=== PATIENT | female | born 1995 | race Caucasian/White ===

== ENCOUNTER 2021-02-07 09:17 | Emergency (ER) | payer OTHER, MEDICAID, SELFPAY ==
[2021-02-07] VITALS (7 sets, daily range): BP systolic 105–139; BP diastolic 59–74; PULSE 57–80; RESP 11–21; TEMP 36.6; O2SAT 97–100; BMI 43.7
--- NOTE | 2021-02-07 09:48 | ED.SYNCOPE ---
HPI - Syncope General Chief Complaint: Syncope Stated Complaint: Passed out and hit head. low abd cramping Time Seen by Provider: 02/07/21 09:39 Source: patient Mode of arrival: Ambulatory Limitations: no limitations History of Present Illness HPI narrative: 25-year-old female nonsmoker without significant medical history presents with a chief complaint of a syncopal episode this morning and right lower quadrant pain and cramping. She states that she went to bed in her normal state of health. She had no dizziness or lightheadedness. She has had no recent nausea, vomiting or diarrhea. She denies any new medications or dietary change. Her last menstrual cycle was the 1st week of this month and was normal for her, she does state that that is usually irregular due to her IUD. She denies any current vaginal bleeding or discharge. She woke up this morning and was having this lower abdominal discomfort and went to the bathroom and began to feel dizzy, lightheaded and suffered a syncopal episode. When she fell she struck her head and came back to her normal level of consciousness and baseline neurologic status prior to her arrival. Denies any blurred vision or trouble with speech. Related Data Previous Rx's Medication Instructions Recorded azithromycin 250 mg tablet 250 mg PO QDAY #6 tab 08/10/16 (Zithromax) benzonatate 100 mg capsule 100 mg PO TIDP PRN #20 cap 08/10/16 (Tessalon Perles) ketorolac 10 mg tablet 10 mg PO Q6H PRN #14 tab 02/07/21 Allergies Allergy/AdvReac Type Severity Reaction Status Date / Time Penicillins [PENICILLINS] Allergy Unknown Verified 02/07/21 09:41 Review of Systems Review of Systems Narrative: GENERAL: Denies chills, fatigue, malaise, fever, sweats. HEENT: Denies sinus pain, ear pain, sore throat, difficulty swallowing, dizziness. RESPIRATORY: Denies dyspnea, cough, wheezing, hemoptysis, sputum. CARDIOVASCULAR: See HPI GASTROINTESTINAL: See HPI : Denies dysuria, frequency, incontinence, hematuria, urinary retention. MUSCULOSKELETAL: denies weakness, joint pain, or bony pain SKIN: Denies rash, skin lesions, or other NEUROLOGIC: Denies weakness, headache, numbness, change in speech, confusion, seizures, incoordination. PSYCHIATRIC: No concerning psychosocial issues. 12 point review of systems is negative except for those stated above Patient History Social History Smoking Status: Never smoker Smoking Status: Never smoker alcohol intake frequency: holidays/special occasions only Substance Use Type: marijuana Exam Narrative Exam Narrative: GENERAL: 25 year old patient appears stated age. Well-developed patient, in mild distress. Anxious, alert and oriented x3 HEAD: Atraumatic. Normocephalic. EYES: Pupils equal round and reactive. Extraocular motions intact. No scleral icterus. No injection or drainage. ENT: Nose without bleeding, purulent drainage. Throat without erythema, tonsillar hypertrophy or exudate. Airway patent. NECK: Trachea midline. Non tender CARDIOVASCULAR: Regular rate and rhythm without murmurs, gallops, or rubs. RESPIRATORY: Clear to auscultation. Breath sounds equal bilaterally. No wheezes, rales, or rhonchi. GASTROINTESTINAL: Abdomen soft, non-tender, nondistended. EXTREMITIES: No edema or joint tenderness. BACK: Nontender without deformity or crepitance. No flank tenderness. NEURO: Cranial nerves 2-12 grossly intact, no evidence of focal neurologic abnormality SKIN: No rash or erythema of visible areas Initial Vital Signs Initial Vital Signs: Vital Signs Pulse Rate 80 02/07/21 09:37 Blood Pressure 118/61 02/07/21 09:37 Pulse Oximetry 99 02/07/21 09:37 Course Orders Ordered: Discontinued Medications Sodium Chloride (Normal Saline 0.9%) 1,000 mls @ 1,000 mls/hr IV BOLUS ONE Stop: 02/07/21 10:47 Last Infusion: 02/07/21 11:28 Dose: 0 mls/hr Documented by: Admin: 02/07/21 10:10 Dose: 1,000 mls/hr Documented by: AILEEN Ketorolac Tromethamine (Ketorolac 30 Mg/Ml Vial) 15 mg IV NOW ONE Stop: 02/07/21 11:27 Last Admin: 02/07/21 11:33 Dose: 15 mg Documented by: TIMOTHY Vital Signs Vital signs: Vital Signs - 8 hr 02/07/21 09:41 Temperature 97.9 F Pulse Rate 71 Respiratory Rate 18 Blood Pressure 118/61 Pulse Oximetry 98 MDM - Syncope Lab Data Result diagrams: 02/07/21 10:00 10/23/21 10:00 Labs: Lab Results 02/07/21 02/07/21 Range/Units 10:00 10:00 WBC 8.7 (4.5-11.0) X10^3/uL RBC 4.87 (4.0-5.2) X10^6/uL Hgb 14.6 (12.0-16.0) g/dL Hct 42.6 (36-46) % MCV 87.5 (80-100) fL MCH 29.9 (26-34) PG MCHC 34.2 (30-36) % RDW 12.8 (11.6-14.8) % Plt Count 285 (150-400) X10^3/uL Neut % (Auto) 68.4 (50-75) % Lymph % (Auto) 23.1 L (25-40) % Hunt % (Auto) 7.4 (3-14) % Eos % (Auto) 0.7 L (2-4) % Baso % (Auto) 0.4 (0-2) % Neut # (Auto) 5900 (3770-5899) /uL Lymph # (Auto) 2000 (9344-2524) /uL Hunt # (Auto) 600 (0-900) /uL Eos # (Auto) 100 (0-450) /uL Baso # (Auto) 0 (0-100) /uL Sodium 139 (137-145) mmol/L Potassium 4.0 (3.4-5.1) mmol/L Chloride 105 (98-107) mmol/L Carbon Dioxide 24 (22-32) mmol/L BUN 15 (7-17) mg/dL Creatinine 0.63 (0.52-1.04) mg/dL Estimated GFR > 60.0 (>60) mL/min BUN/Creatinine Ratio 23.8 H (6-22) Glucose 100 (70-100) mg/dL Calcium 9.5 (8.4-10.2) mg/dL Magnesium 2.0 (1.6-2.3) mg/dL Total Bilirubin 0.8 (0.2-1.3) mg/dL AST 25 (14-36) IU/L ALT 20 (<35) IU/L Alkaline Phosphatase 77 (38-126) U/L Total Creatine Kinase 115 (30-135) U/L CK-MB (CK-2) 0.25 (<2.37) ng/mL CK-MB (CK-2) Rel Index 0.2 L (1.5-5.0) % Troponin I < 0.012 (0.01-0.034) ng/mL Total Protein 8.3 H (6.3-8.2) g/dL Albumin 4.8 (3.5-5.0) g/dL Globulin 3.5 (1.7-4.1) g/dL Albumin/Globulin Ratio 1.4 (1.0-2.8) Urine Dip Bedside Urine Glucose Negative Bedside Urine Bilirubin - Negative Bedside Urine Ketone - Negative Urine Specific [place] 1.015 Bedside Urine Occult Blood - Negative Bedside Urine pH 6.0 Bedside Urine Protein - Negative Bedside Urine Urobilinogen - Negative Bedside Urine Nitrite - Negative Bedside Urine Leukocytes - Negative Esterase Imaging Data US - abdomen: Radiologist's Impression: [address] [address] Ultrasound Report Signed Patient: Susan Winkler MR#: [id number] : 1995 Acct:[id number] Age/Sex: 25 / F Date of Service: 02/07/21 Loc: ED Accession Number: [id number] ?? Procedure: US pelvic complete Ordering Provider: Ray Walker D.O. PROCEDURE:? US PELVIC COMPLETE ? INDICATIONS:? RIGHT PELVIC PAIN ? TECHNIQUE:? Real-time scanning was performed of the pelvic organs, with image documentation.? Additional endovaginal scanning was necessary due to incomplete visualization of the adnexal and endometrial structures by transabdominal scanning.? ? COMPARISON:? None. ? FINDINGS:? ?? Uterus:? Uterus is normal in size at 7.1 x 3.6 x 4 cm.? The endometrium measures 5 mm in combined thickness.? The IUD is seen at its expected location.? ? Ovaries:? The right ovary measures 5.1 x 3.6 x 4.5 and demonstrates a 3.9 x 3 x 4 cm complex cyst without abnormal vascularity.? This cyst demonstrates a fishnet type echotexture. ? The left ovary measures 2.8 x 1.4 x 1.2 cm and demonstrates an unremarkable appearance. ? Normal appearing arterial waveforms are confirmed to each ovary.? No adnexal masses are seen on either side.? ? Other: ? There is moderate right adnexal fluid seen. ? No appendix (either normal or abnormal) is identified on this study. ? ? IMPRESSION:? 4 cm hemorrhagic right ovarian cyst seen, with right adnexal free fluid. If it would be clinically appropriate, a followup pelvic ultrasound could be considered in 6 weeks to assure resolution/ improvement.? ? No appendix (either normal or abnormal) is identified on this study.? ? ? Dictated by: Jared Murray M.D. on 02/07/2021 at 10:02 ? ? Approved by: Jared Murray M.D. on 02/07/2021 at 10:04 ? ECG Data Interpretation: EKG is normal sinus rhythm rate [70 ] and free of any signs of ischemia or ectopy. No ST segmental elevation or depression. No T wave inversions MDM Narrative Medical decision making narrative: Patient with a very reassuring history and exam. Labs are unremarkable. Imaging to suggest hemorrhagic ovarian syst. Vitals are stable. H/H stable. Syncopal episode likely a combination of postural and vagal from the pain. She is feeling much better after above therapies. Return precautions given Discharge Plan Departure Patient Disposition: Home Clinical Impression: Ovarian cyst Qualifiers: Laterality: right Qualified Code(s): N83.201 - Unspecified ovarian cyst, right side Instructions: DI for Syncope in Adults (Fainting), DI for Ovarian Cyst Activity Restrictions/Additional Instructions: *You have been diagnosed with [right ovarian cyst with vasovagal syncope *What to do: *Please continue to take your regular medications as directed. [x ] New medication prescriptions sent to your pharmacy: [ ] [ ] New medication written as a paper prescription [ ] No new medications given *Please follow up with your primary care provider in 2-3 days, call for an appointment. Let them know you were seen in the Emergency Department and that we ask that you be seen in follow up. We will electronically transmit a record of today's note if your PCP is in our system *If you do not have a primary care provider please contact the [facility] Resource line at [phone]. They will ask some questions about your medical history and help get you set up with a doctor in the community. *Return to Emergency Department if you should have any new, worsening or concerning symptoms, such as [fever greater than 101 F, shaking chills, worsening pain, persistent vomiting or other bothersome symptoms] Prescriptions: New ketorolac 10 mg tablet 10 mg PO Q6H PRN (Reason: pain) Qty: 14 RF: 0 No Action azithromycin [Zithromax] 250 MG tablet 250 mg PO QDAY Qty: 6 RF: 0 benzonatate [Tessalon Perles] 100 MG capsule 100 mg PO TIDP PRNQty: 20 RF: 0 Referrals: [facility] [Outside] Stand Alone Forms: Work Release Note
--- NOTE | 2021-02-07 09:56 | DI.US.S_ITS ---
PROCEDURE: US PELVIC COMPLETE INDICATIONS: RIGHT PELVIC PAIN TECHNIQUE: Real-time scanning was performed of the pelvic organs, with image documentation. Additional endovaginal scanning was necessary due to incomplete visualization of the adnexal and endometrial structures by transabdominal scanning. COMPARISON: None. FINDINGS: Uterus: Uterus is normal in size at 7.1 x 3.6 x 4 cm. The endometrium measures 5 mm in combined thickness. The IUD is seen at its expected location. Ovaries: The right ovary measures 5.1 x 3.6 x 4.5 and demonstrates a 3.9 x 3 x 4 cm complex cyst without abnormal vascularity. This cyst demonstrates a fishnet type echotexture. The left ovary measures 2.8 x 1.4 x 1.2 cm and demonstrates an unremarkable appearance. Normal appearing arterial waveforms are confirmed to each ovary. No adnexal masses are seen on either side. Other: There is moderate right adnexal fluid seen. No appendix (either normal or abnormal) is identified on this study. IMPRESSION: 4 cm hemorrhagic right ovarian cyst seen, with right adnexal free fluid. If it would be clinically appropriate, a followup pelvic ultrasound could be considered in 6 weeks to assure resolution/ improvement. No appendix (either normal or abnormal) is identified on this study. Dictated by: Jared Murray M.D. on 02/07/2021 at 10:02 Approved by: Jared Murray M.D. on 02/07/2021 at 10:04
[2021-02-07] MEDS: SODIUM CHLORIDE 0.9% 1,000 ML 1000 ML IV (10:10)
[2021-02-07 10:15] LABS: Add Manual Diff / Slide Review NO; Basophils Absolute Auto 0 /uL (0-100); Basophils Percent Auto 0.4 % (0-2); Eosinophils Absolute Auto 100 /uL (0-450); Eosinophils Percent Auto 0.7 % (2-4); Hematocrit 42.6 % (36-46); Hemoglobin 14.6 g/dL (12.0-16.0); Lymphocytes Absolute Auto 2000 /uL (1100-4500); Lymphocytes Percent Auto 23.1 % (25-40); Mean Corpuscular HGB Conc 34.2 % (30-36); Mean Corpuscular Hemoglobin 29.9 PG (26-34); Mean Corpuscular Volume 87.5 fL (80-100); Monocytes Absolute Auto 600 /uL (0-900); Monocytes Percent Auto 7.4 % (3-14); Neutrophils Absolute Auto 5900 /uL (1500-7000); Neutrophils Percent Auto 68.4 % (50-75); Platelet Count 285 X10^3/uL (150-400); Red Blood Cell Count 4.87 X10^6/uL (4.0-5.2); Red Cell Distribution Width 12.8 % (11.6-14.8); White Blood Cell Count 8.7 X10^3/uL (4.5-11.0)
[2021-02-07 10:30] LABS: Alanine Aminotransferase 20 IU/L (<35); Albumin 4.8 g/dL (3.5-5.0); Albumin Globulin Ratio 1.4 (1.0-2.8); Alkaline Phosphatase 77 U/L (38-126); Aspartate Aminotransferase 25 IU/L (14-36); BUN Creatinine Ratio 23.8 (6-22); Bilirubin Total 0.8 mg/dL (0.2-1.3); Blood Urea Nitrogen 15 mg/dL (7-17); Calcium 9.5 mg/dL (8.4-10.2); Carbon Dioxide 24 mmol/L (22-32); Chloride 105 mmol/L (98-107); Creatine Kinase 115 U/L (30-135); Estimated Glomerular Filt Rate > 60.0 mL/min (>60); Globulin 3.5 g/dL (1.7-4.1); Glucose 100 mg/dL (70-100); HEMOLYSIS 29 (0-50); Sodium 139 mmol/L (137-145); Total Protein 8.3 g/dL (6.3-8.2)
[2021-02-07 10:41] LABS: Troponin I < 0.012 ng/mL (0.01-0.034)
[2021-02-07 10:45] LABS: CKMB % Relative Index 0.2 % (1.5-5.0); Creatine Kinase MB 0.25 ng/mL (<2.37)
[2021-02-07] MEDS: KETOROLAC 30 MG/ML VIAL 15 MG IV (11:33)
== END 2021-02-07 11:55 | disposition home or self-care (01) ==
PROVIDERS: Emergency Provider Emergency Medicine
DX: N83.201 Unspecified ovarian cyst, right side (principal); R10.31 Right lower quadrant pain; R55 Syncope and collapse
CPT/HCPCS: 36415; 76830; 76856; 80053; 81003; 82550; 82553; 83735; 84484; 85025; 93005; 93010; 96361; 96374; 99284; J1885

== ENCOUNTER 2021-03-09 14:22 | Emergency (ER) | payer OTHER, MEDICAID, SELFPAY ==
[2021-03-09 14:45] VITALS: BP 128/61; PULSE 70; RESP 16; TEMP 36.4; O2SAT 100; BMI 44.8
--- NOTE | 2021-03-09 16:34 | DI.US.S_ITS ---
PROCEDURE: US PELVIC COMPLETE INDICATIONS: ?IUD PLACEMENT,?OVARIAN CYST RUPTURE,?TORSION. NEG HCG. LMP 02/23/2021? TECHNIQUE: Real-time scanning was performed of the pelvic organs, with image documentation. Additional endovaginal scanning was necessary due to incomplete visualization of the adnexal and endometrial structures by transabdominal scanning. COMPARISON: [facility], US, US PELVIC COMPLETE, 02/07/2021, 10:35. FINDINGS: Uterus: Uterus is anteverted and normal in size at 7.1 x 3.8 x 3 cm. The myometrium is homogeneous. The endometrium measures 6 mm combined thickness. IUD is centered in the uterus. Ovaries: The right ovary measures 4.2 x 3.7 x 3.2 cm. The left ovary measures 2.4 x 2 x 1.6 cm. Complex right ovarian cyst measuring 2.9 x 2.7 x 1.6 cm (previously 4 x 3.9 x 3 cm). No internal vascularity. The cyst is hypoechoic with an internal lace-like appearance. A few small ovarian follicles. Blood flow seen in both ovaries. Other: Small volume of free fluid. IMPRESSION: 1. Right ovarian hemorrhagic cyst measuring 2.9 cm is decreased in size. Small volume of free fluid in the pelvis. 2. No ovarian torsion is demonstrated. 3. IUD is centered in the uterus. We strive to produce accurate, complete, and clear reports of imaging services. To assist us in improving patient care, this report was composed using standard report templates and voice recognition software. Therefore, it may contain abnormal punctuation, insertions and/or omissions. Occasional wrong-word or sound-alike substitutions may occur. Though we review the report and make efforts to correct it, we do recommend that the report be read carefully in proper context to recognize any text inaccuracies. Dictated by: Margarito Frost M.D. on 03/09/2021 at 17:49 Approved by: Margarito Frost M.D. on 03/09/2021 at 17:55
[2021-03-09] MEDS: KETOROLAC 30 MG/ML VIAL 15 MG IV (17:00)
[2021-03-09 17:03] VITALS: BP 109/56; PULSE 60; RESP 20; O2SAT 100
[2021-03-09 17:12] LABS: Add Manual Diff / Slide Review NO; Basophils Absolute Auto 0 /uL (0-100); Basophils Percent Auto 0.4 % (0-2); Eosinophils Absolute Auto 100 /uL (0-450); Eosinophils Percent Auto 0.6 % (2-4); Hematocrit 41.7 % (36-46); Hemoglobin 14.2 g/dL (12.0-16.0); Lymphocytes Absolute Auto 3200 /uL (1100-4500); Lymphocytes Percent Auto 28.9 % (25-40); Mean Corpuscular Hemoglobin 29.7 PG (26-34); Mean Corpuscular Volume 87.3 fL (80-100); Monocytes Absolute Auto 700 /uL (0-900); Monocytes Percent Auto 6.3 % (3-14); Neutrophils Absolute Auto 7000 /uL (1500-7000); Neutrophils Percent Auto 63.8 % (50-75); Platelet Count 287 X10^3/uL (150-400); Red Blood Cell Count 4.77 X10^6/uL (4.0-5.2); Red Cell Distribution Width 12.5 % (11.6-14.8); White Blood Cell Count 10.9 X10^3/uL (4.5-11.0)
[2021-03-09 17:46] LABS: BUN Creatinine Ratio 22.2 (6-22); Blood Urea Nitrogen 14 mg/dL (7-17); Calcium 9.5 mg/dL (8.4-10.2); Carbon Dioxide 26 mmol/L (22-32); Chloride 106 mmol/L (98-107); Estimated Glomerular Filt Rate > 60.0 mL/min (>60); Glucose 93 mg/dL (70-100); HEMOLYSIS < 15 (0-50); Lactate (Lactic Acid) 0.8 mmol/L (0.7-2.1); Potassium 4.1 mmol/L (3.4-5.1); Sodium 140 mmol/L (137-145)
--- NOTE | 2021-03-09 17:54 | ED_ITS ---
HPI - Abdominal Pain <Frank Aguilar PA-C - Last Filed: 03/09/21 18:30> General Chief Complaint: Abdominal Pain Stated Complaint: ovarian cyst rupture Time Seen by Provider: 03/09/21 15:55 Source: patient Mode of arrival: Ambulatory History of Present Illness HPI narrative: 25-year-old female with no reported past medical history presents to the ED with 2 days of lower abdominal pain. Patient states that her pain started as a dull cramping yesterday, intensified today about noon to 10/10 pain. Patient denies fever, chills, chest pain, shortness of breath, cough, nausea, vomiting, flank pain, dysuria, constipation, diarrhea, lightheadedness, dizziness, syncope. LMP was 02/24/2021. Patient has a IUD in. Patient states that she was seen in the ED with similar symptoms a month ago, when she was diagnosed with a hemorrhagic cyst. Related Data Previous Rx's Medication Instructions Recorded azithromycin 250 mg tablet 250 mg PO QDAY #6 tab 08/10/16 (Zithromax) benzonatate 100 mg capsule 100 mg PO TIDP PRN #20 cap 08/10/16 (Tessalon Perles) ketorolac 10 mg tablet 10 mg PO Q6H PRN #14 tab 02/07/21 Allergies Allergy/AdvReac Type Severity Reaction Status Date / Time Penicillins [PENICILLINS] Allergy Unknown Verified 03/09/21 14:50 Review of Systems <Frank Aguilar PA-C - Last Filed: 03/09/21 18:30> Review of Systems ROS Unobtainable: All systems reviewed & are unremarkable except as noted in HPI and below Constitutional Constitutional: Denies chills, Denies fatigue, Denies fever(s), Denies frequent falls, Denies lethargy and Denies weakness Eyes Eyes: Denies change in vision, Denies eye discharge, Denies irritation and Denies loss of vision ENT Ears, Nose, Mouth, and Throat: Denies change in voice, Denies dizziness, Denies neck pain, Denies sore throat and Denies throat swelling Cardiovascular Cardiovascular: Denies chest pain, Denies irregular heart rhythm, Denies lightheadedness, Denies palpitations, Denies dyspnea, Denies dyspnea on exertion and Denies orthopnea Respiratory Respiratory: Denies cough, Denies dyspnea, Denies dyspnea on exertion and Denies wheezing Gastrointestinal Gastrointestinal: Reports abdominal pain, Denies change in bowel habits, Denies diarrhea, Denies nausea and Denies vomiting Genitourinary Genitourinary: Denies hematuria, Denies flank pain, Denies urinary incontinence and Denies urinary urgency Musculoskeletal Musculoskeletal: Denies back pain, Denies muscle weakness, Denies neck pain, Denies numbness and Denies tingling Integumentary/Breasts Skin/Breast: Denies pruritus, Denies erythema, Denies rash and Denies wounds Neurologic Neurologic: Denies behavioral changes, Denies confusion, Denies dizziness, Denies frequent falls, Denies loss of vision, Denies numbness, Denies tingling and Denies weakness Psychiatric Psychiatric: Denies anxiety, Denies behavioral changes, Denies confusion, Denies depression, Denies homicidal ideation and Denies suicidal ideation Endocrine Endocrine: Denies fatigue, Denies flushing and Denies palpitations Hematologic/Lymphatic Hematologic/Lymphatic: Denies easy bruising Allergic/Immunologic Allergic/Immunologic: Denies urticaria, Denies throat swelling and Denies wheezing Patient History <Frank Aguilar PA-C - Last Filed: 03/09/21 18:30> Social History Smoking Status: Never smoker Smoking Status: Never smoker alcohol intake frequency: holidays/special occasions only Substance Use Type: marijuana Exam <Frank Aguilar PA-C - Last Filed: 03/09/21 18:30> Initial Vital Signs Initial Vital Signs: Vital Signs Temperature 97.6 F 03/09/21 14:45 Pulse Rate 70 03/09/21 14:45 Respiratory Rate 16 03/09/21 14:45 Blood Pressure 128/61 03/09/21 14:45 Pulse Oximetry 100 03/09/21 14:45 Const General: cooperative and healthy appearing [facility] Head: normal to inspection Eyes General: appearance normal, both eyes and all related structures Neck Neck: normal visual inspection Chest Chest: normal inspection of the chest Resp Effort & Inspection: normal respiratory effort Auscultation: clear to auscultation bilaterally Cardio Rate: regular rate Rhythm: regular rhythm GI Inspection: normal to inspection Other: Abdomen is soft, nondistended, tender to palpation in the lower quadrants. No CVA tenderness. General: No CVA tenderness Skin General: no rashes or lesions noted Neuro General: patient alert, patient awake and patient oriented x3 Extrem General: normal to inspection <Shantanu Almazan DO - Last Filed: 03/09/21 18:36> Initial Vital Signs Initial Vital Signs: Vital Signs Temperature 97.6 F 03/09/21 14:45 Pulse Rate 70 03/09/21 14:45 Respiratory Rate 16 03/09/21 14:45 Blood Pressure 128/61 03/09/21 14:45 Pulse Oximetry 100 03/09/21 14:45 Course <Frank Aguilar PA-C - Last Filed: 03/09/21 18:30> Course Course Narrative: Labs within normal limits. UA negative. HCG negative. Ultrasound negative for acute findings. Patient's symptoms improved with Toradol. Will discharge home with ED return precautions, of apple picking supervisor follow-up. Patient verbalized understand ing. Orders Ordered: ED Orders 03/09/21 16:34 US pelvic complete Stat 03/09/21 17:06 BMP [Basic Metabolic Panel] Stat CBC Auto Diff [Complete Blood Count AUTO DIFF] Stat Lactate (Lactic Acid) Stat Discontinued Medications Ketorolac Tromethamine (Ketorolac 30 Mg/Ml Vial) 15 mg IV NOW ONE Stop: 03/09/21 16:35 Last Admin: 03/09/21 17:00 Dose: 15 mg Documented by: HENRY Vital Signs Vital signs: Vital Signs - 8 hr 03/09/21 14:45 03/09/21 17:03 Temperature 97.6 F Pulse Rate 70 60 Respiratory Rate 16 20 Blood Pressure 128/61 109/56 L Pulse Oximetry 100 100 <Shantanu Almazan DO - Last Filed: 03/09/21 18:36> Orders Ordered: ED Orders 03/09/21 16:34 US pelvic complete Stat 03/09/21 17:06 BMP [Basic Metabolic Panel] Stat CBC Auto Diff [Complete Blood Count AUTO DIFF] Stat Lactate (Lactic Acid) Stat Discontinued Medications Ketorolac Tromethamine (Ketorolac 30 Mg/Ml Vial) 15 mg IV NOW ONE Stop: 03/09/21 16:35 Last Admin: 03/09/21 17:00 Dose: 15 mg Documented by: HENRY Vital Signs Vital signs: Vital Signs - 8 hr 03/09/21 14:45 03/09/21 17:03 Temperature 97.6 F Pulse Rate 70 60 Respiratory Rate 16 20 Blood Pressure 128/61 109/56 L Pulse Oximetry 100 100 MDM - Abdominal Pain <Hyma NICHOLAS Aguilar - Last Filed: 03/09/21 18:30> Lab Data Lab results narrative: Labs within normal limits, UA negative, hCG negative Result diagrams: 03/09/21 17:06 03/09/21 17:06 Labs: Lab Results 03/09/21 03/09/21 03/09/21 Range/Units 17:06 17:06 17:06 WBC 10.9 (4.5-11.0) X10^3/uL RBC 4.77 (4.0-5.2) X10^6/uL Hgb 14.2 (12.0-16.0) g/dL Hct 41.7 (36-46) % MCV 87.3 (80-100) fL MCH 29.7 (26-34) PG MCHC 34.0 (30-36) % RDW 12.5 (11.6-14.8) % Plt Count 287 (150-400) X10^3/uL Neut % (Auto) 63.8 (50-75) % Lymph % (Auto) 28.9 (25-40) % [place] % (Auto) 6.3 (3-14) % Eos % (Auto) 0.6 L (2-4) % Baso % (Auto) 0.4 (0-2) % Neut # (Auto) 7000 (9663-5646) /uL Lymph # (Auto) 3200 (2969-9919) /uL [place] # (Auto) 700 (0-900) /uL Eos # (Auto) 100 (0-450) /uL Baso # (Auto) 0 (0-100) /uL Sodium 140 (137-145) mmol/L Potassium 4.1 (3.4-5.1) mmol/L Chloride 106 (98-107) mmol/L Carbon Dioxide 26 (22-32) mmol/L BUN 14 (7-17) mg/dL Creatinine 0.63 (0.52-1.04) mg/dL Estimated GFR > 60.0 (>60) mL/min BUN/Creatinine Ratio 22.2 H (6-22) Glucose 93 (70-100) mg/dL Lactate 0.8 (0.7-2.1) mmol/L Calcium 9.5 (8.4-10.2) mg/dL Point of care testing: Point of Care Testing Test Results Negative Urine Dip Bedside Urine Glucose Negative Bedside Urine Bilirubin - Negative Bedside Urine Ketone - Negative Urine Specific [place] 1.025 Bedside Urine Occult Blood - Negative Bedside Urine pH 6.0 Bedside Urine Protein - Negative Bedside Urine Urobilinogen - Negative Bedside Urine Nitrite - Negative Bedside Urine Leukocytes - Negative Esterase Imaging Data US - [employer] REPRESENTATIVE: Radiologist's Impression: PROCEDURE:? US PELVIC COMPLETE ? INDICATIONS:? ?IUD PLACEMENT,?OVARIAN CYST RUPTURE,?TORSION. NEG HCG. LMP 02/23/2021? ? TECHNIQUE:? Real-time scanning was performed of the pelvic organs, with image documentation.? Additional endovaginal scanning was necessary due to incomplete visualization of the adnexal and endometrial structures by transabdominal scanning.? ? COMPARISON:? [facility], , US PELVIC COMPLETE, 02/07/2021, 10:35. ? FINDINGS:? ?? Uterus:? Uterus is anteverted and normal in size at 7.1 x 3.8 x 3 cm. The myometrium is homogeneous. ? The endometrium measures 6 mm combined thickness.? IUD is centered in the uterus. ? Ovaries:? The right ovary measures 4.2 x 3.7 x 3.2 cm. The left ovary measures 2.4 x 2 x 1.6 cm.? Complex right ovarian cyst measuring 2.9 x 2.7 x 1.6 cm (previously 4 x 3.9 x 3 cm).? No internal vascularity.? The cyst is hypoechoic with an internal lace- like appearance.? A few small ovarian follicles.? Blood flow seen in both ovaries. ? Other:? Small volume of free fluid. ? ? IMPRESSION:? ? 1. Right ovarian hemorrhagic cyst measuring 2.9 cm is decreased in size.? Small volume of free fluid in the pelvis. ? 2. No ovarian torsion is demonstrated.? ? 3. IUD is centered in the uterus. ? ? We strive to produce accurate, complete, and clear reports of imaging services. To assist us in improving patient care, this report was composed using standard report templates and voice recognition software. Therefore, it may contain abnormal punctuation, insertions and/or omissions. Occasional wrong-word or sound-alike substitutions may occur. Though we review the report and make efforts to correct it, we do recomme nd that the report be read carefully in proper context to recognize any text inaccuracies. ? ? Dictated by: Margarito Frost M.D. on 03/09/2021 at 17:49 ? ? Approved by: Margarito Frost M.D. on 03/09/2021 at 17:55 ? MDM Narrative Medical decision making narrative: 25-year-old female with no reported past medical history presents to the ED with 2 days of lower abdominal pain. Concern for ruptured ovarian cyst versus ovarian torsion versus ectopic versus PID. Will order labs, lactate, UA, hCG, ultrasound pelvis. Will consider CT to rule out appendicitis if ultrasound negative. Will give ketorolac for pain. Will reassess. <Shantanu Almazan DO - Last Filed: 03/09/21 18:36> Lab Data Labs: Lab Results 03/09/21 03/09/21 03/09/21 Range/Units 17:06 17:06 17:06 WBC 10.9 (4.5-11.0) X10^3/uL RBC 4.77 (4.0-5.2) X10^6/uL Hgb 14.2 (12.0-16.0) g/dL Hct 41.7 (36-46) % MCV 87.3 (80-100) fL MCH 29.7 (26-34) PG MCHC 34.0 (30-36) % RDW 12.5 (11.6-14.8) % Plt Count 287 (150-400) X10^3/uL Neut % (Auto) 63.8 (50-75) % Lymph % (Auto) 28.9 (25-40) % [place] % (Auto) 6.3 (3-14) % Eos % (Auto) 0.6 L (2-4) % Baso % (Auto) 0.4 (0-2) % Neut # (Auto) 7000 (8906-6542) /uL Lymph # (Auto) 3200 (9525-4347) /uL [place] # (Auto) 700 (0-900) /uL Eos # (Auto) 100 (0-450) /uL Baso # (Auto) 0 (0-100) /uL Sodium 140 (137-145) mmol/L Potassium 4.1 (3.4-5.1) mmol/L Chloride 106 (98-107) mmol/L Carbon Dioxide 26 (22-32) mmol/L BUN 14 (7-17) mg/dL Creatinine 0.63 (0.52-1.04) mg/dL Estimated GFR > 60.0 (>60) mL/min BUN/Creatinine Ratio 22.2 H (6-22) Glucose 93 (70-100) mg/dL Lactate 0.8 (0.7-2.1) mmol/L Calcium 9.5 (8.4-10.2) mg/dL Point of care testing: Point of Care Testing Test Results Negative Urine Dip Bedside Urine Glucose Negative Bedside Urine Bilirubin - Negative Bedside Urine Ketone - Negative Urine Specific [place] 1.025 Bedside Urine Occult Blood - Negative Bedside Urine pH 6.0 Bedside Urine Protein - Negative Bedside Urine Urobilinogen - Negative Bedside Urine Nitrite - Negative Bedside Urine Leukocytes - Negative Esterase Discharge Plan Departure Patient Disposition: Home Clinical Impression: Abdominal pain Instructions: DI for Abdominal Pain-Adult Activity Restrictions/Additional Instructions: You were evaluated in the ED today for lower abdominal pain. Your labs were normal. Your ultrasound was normal as well, and shows that the right ovarian cyst has reduced in size. Your pain improved with Toradol. You may continue to take ibuprofen at home for your symptoms. Please follow-up with your OBGYN for further management. If your symptoms worsen, you experience fever, chills, nausea, vomiting, please return to the ED. Prescriptions: No Action azithromycin [Zithromax] 250 MG tablet 250 mg PO QDAY Qty: 6 0RF benzonatate [Tessalon Perles] 100 MG capsule 100 mg PO TIDP PRNQty: 20 0RF ketorolac 10 mg tablet 10 mg PO Q6H PRN (Reason: pain) Qty: 14 0RF <Shantanu Almazan, DO - Last Filed: 03/09/21 18:36> Cosign ED Attending Cosignature Attestation: Dr Almazan Co-Sign Statement: I was available for consultation during this patient's emergency department visit. This chart is signed by myself for administrative purposes only. I did not have direct contact with this patient during this visit. They were seen independently by the APC.
[2021-03-09 18:35] VITALS: BP 110/66; PULSE 63; RESP 18; O2SAT 98
== END 2021-03-09 18:40 | disposition home or self-care (01) ==
PROVIDERS: Emergency Provider Student in an Organized Health Care Education/Training Program
DX: R10.30 Lower abdominal pain, unspecified (principal); N83.201 Unspecified ovarian cyst, right side
CPT/HCPCS: 36415; 76830; 76856; 80048; 81003; 81025; 83605; 85025; 96374; 99284; J1885

== ENCOUNTER 2021-05-05 11:37 | Emergency (ER) | payer OTHER, MEDICAID, SELFPAY ==
[2021-05-05 11:40] VITALS: BP 150/66; PULSE 122; RESP 18; TEMP 37.6; O2SAT 99; BMI 44.8
[2021-05-05] MEDS: ACETAMINOPHEN 325 MG TABLET 650 MG PO (12:04)
[2021-05-05 12:20] LABS: COVID19 -Nasal RAPID POSITIVE (Negative)
--- NOTE | 2021-05-05 13:00 | ED.URI ---
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 Patient endorses headache, body aches, chills, nasal congestion, cough, fatigue. Patient has a distant history of bronchitis associated with URIs, for which she has used an inhaler with good success. Patient denies chest pain, shortness of breath, nausea, vomiting, lightheadedness, syncope. Patient is vaccinated for COVID. Patient requesting a prescription for an inhaler in case she might need it. Related Data Previous Rx's Medication Instructions Recorded albuterol sulfate 90 mcg/actuation 1 inh INHALATION QID PRN #8.5 g 05/05/21 aerosol inhaler Allergies Allergy/AdvReac Type Severity Reaction Status Date / Time Penicillins [PENICILLINS] Allergy Unknown Verified 05/05/21 11:49 Review of Systems <Frank Aguilar PA-C - Last Filed: 05/05/21 13:04> Review of Systems ROS Unobtainable: All systems reviewed & are unremarkable except as noted in HPI and below Constitutional Constitutional: Reports body ache(s), Reports chills, Reports fatigue, Denies fever(s), Denies frequent falls, Reports headache(s), Denies lethargy and Denies weakness Eyes Eyes: Denies change in vision, Denies eye discharge, Denies irritation and Denies loss of vision ENT Ears, Nose, Mouth, and Throat: Denies change in voice, Denies dizziness, Reports headache(s), Reports nasal congestion, Denies neck pain, Denies sore throat and Denies throat swelling Cardiovascular Cardiovascular: Denies chest pain, Denies irregular heart rhythm, Denies lightheadedness, Denies palpitations, Denies dyspnea, Denies dyspnea on exertion and Denies orthopnea Respiratory Respiratory: Reports cough, Denies dyspnea, Denies dyspnea on exertion and Denies wheezing Gastrointestinal Gastrointestinal: Denies abdominal pain, Denies change in bowel habits, Denies diarrhea, Denies nausea and Denies vomiting Genitourinary Genitourinary: Denies hematuria, Denies flank pain, Denies urinary incontinence and Denies urinary urgency Musculoskeletal Musculoskeletal: Denies back pain, Denies muscle weakness, Denies neck pain, Denies numbness and Denies tingling Integumentary/Breasts Skin/Breast: Denies pruritus, Denies erythema, Denies rash and Denies wounds Neurologic Neurologic: Denies behavioral changes, Denies confusion, Denies dizziness, Denies frequent falls, Reports headache(s), Denies loss of vision, Denies numbness, Denies tingling and Denies weakness Psychiatric Psychiatric: Denies anxiety, Denies behavioral changes, Denies confusion, Denies depression, Denies homicidal ideation and Denies suicidal ideation Endocrine Endocrine: Reports fatigue, Denies flushing and Denies palpitations Hematologic/Lymphatic Hematologic/Lymphatic: Denies easy bruising Allergic/Immunologic Allergic/Immunologic: Denies urticaria, Denies throat swelling and Denies wheezing Patient History <Frank Aguilar PA-C - Last Filed: 05/05/21 13:04> Social History Smoking Status: Never smoker Smoking Status: Never smoker alcohol intake frequency: holidays/special occasions only Substance Use Type: marijuana Exam <Frank Aguilar PA-C - Last Filed: 05/05/21 13:04> Narrative Exam Narrative: Const General:?cooperative, healthy appearing and comfortable [facility] Head:?normal to inspection Ears:?hearing grossly normal bilaterally Nose:?external nose normal Face and sinus:?normal facial exam and sinuses nontender Mouth:?oral mucosae normal Throat:?posterior oropharynx normal Eyes General:?appearance normal, both eyes and all related structures Neck Neck:?normal visual inspection and no lymphadenopathy noted Resp Effort & Inspection:?normal respiratory effort Auscultation:?clear to auscultation bilaterally Cardio Rate:?regular rate Rhythm:?regular rhythm Neuro General:?patient alert, patient awake and patient oriented x3 Initial Vital Signs Initial Vital Signs: Vital Signs Temperature 99.7 F H 05/05/21 11:40 Pulse Rate 122 H 05/05/21 11:40 Respiratory Rate 18 05/05/21 11:40 Blood Pressure 150/66 H 05/05/21 11:40 Pulse Oximetry 99 05/05/21 11:40 <Mercedes Zamarripa DO - Last Filed: 05/05/21 19:43> Initial Vital Signs Initial Vital Signs: Vital Signs Temperature 99.7 F H 05/05/21 11:40 Pulse Rate 122 H 05/05/21 11:40 Respiratory Rate 18 05/05/21 11:40 Blood Pressure 150/66 H 05/05/21 11:40 Pulse Oximetry 99 05/05/21 11:40 Course <Frank Aguilar PA-C - Last Filed: 05/05/21 13:04> Orders Ordered: ED Orders 05/05/21 11:45 COVID19 -Nasal swab/Pre-Proc Stat Discontinued Medications Acetaminophen (Acetaminophen 325 Mg Tablet) 650 mg PO NOW ONE Stop: 05/05/21 11:51 Last Admin: 05/05/21 12:04 Dose: 650 mg Documented by: AILEEN Vital Signs Vital signs: Vital Signs - 8 hr 05/05/21 13:03 Pulse Rate 101 H Respiratory Rate 22 Pulse Oximetry 99 <Mercedes Zamarripa DO - Last Filed: 05/05/21 19:43> Orders Ordered: ED Orders 05/05/21 11:45 COVID19 -Nasal swab/Pre-Proc Stat Discontinued Medications Acetaminophen (Acetaminophen 325 Mg Tablet) 650 mg PO NOW ONE Stop: 05/05/21 11:51 Last Admin: 05/05/21 12:04 Dose: 650 mg Documented by: AILEEN Vital Signs Vital signs: Vital Signs - 8 hr 05/05/21 13:03 Pulse Rate 101 H Respiratory Rate 22 Pulse Oximetry 99 MDM - URI/Sore Throat <Frank Aguilar PA-C - Last Filed: 05/05/21 13:04> Medical Records Attestation: I reviewed the patient's medical records. Lab Data Attestation: I reviewed the patient's lab results. Lab results narrative: COVID-19 positive Labs: Lab Results 05/05/21 Range/Units 11:45 SARS-CoV-2 (PCR) Positive H (Negative) Point of Care Testing Test Results Negative Urine Dip Bedside Urine Glucose Negative Bedside Urine Bilirubin - Negative Bedside Urine Ketone - Negative Urine Specific [place] 1.020 Bedside Urine Occult Blood - Negative Bedside Urine pH 7.5 Bedside Urine Protein - Negative Bedside Urine Urobilinogen - Negative Bedside Urine Nitrite - Negative Bedside Urine Leukocytes - Negative Esterase MDM Narrative Medical decision making narrative: Concern for COVID-19 infection versus other viral syndrome.? COVID-19 test was positive, patient informed ED return precautions, isolation/quarantine guidelines discussed.? Patient verbalized understanding. Patient discharged <Mercedes Zamarripa DO - Last Filed: 05/05/21 19:43> Lab Data Labs: Lab Results 05/05/21 Range/Units 11:45 SARS-CoV-2 (PCR) Positive H (Negative) Point of Care Testing Test Results Negative Urine Dip Bedside Urine Glucose Negative Bedside Urine Bilirubin - Negative Bedside Urine Ketone - Negative Urine Specific [place] 1.020 Bedside Urine Occult Blood - Negative Bedside Urine pH 7.5 Bedside Urine Protein - Negative Bedside Urine Urobilinogen - Negative Bedside Urine Nitrite - Negative Bedside Urine Leukocytes - Negative Esterase Discharge Plan Departure Patient Disposition: Home Clinical Impression: COVID-19 Instructions: DI for COVID-19 (Suspected or Confirmed ) Activity Restrictions/Additional Instructions: You were evaluated in the ED for flu-like symptoms. You tested positive for COVID-19 in the emergency department. Please return to the ED if you have worsening shortness of breath, chest pain. Please isolate/quarantine per CDC guidelines, which currently states that you isolate/quadrant in for 5 days since the start of your symptoms. After 5 days, if you do not have symptoms such as fever, runny nose, you may go out in public but with face mask at all times. Prescriptions: New albuterol sulfate 90 mcg/actuation HFA aerosol inhaler 1 inh inhalation QID PRN (Reason: shortness of breath or wheezing) Qty: 8.5 0RF <Mercedes Zamarripa, - Last Filed: 05/05/21 19:43> Cosign ED Attending Cosdelmyature Attestation: I was immediately available in the department for consultation. Documentation has been reviewed.
[2021-05-05 13:03] VITALS: PULSE 101; RESP 22; O2SAT 99
== END 2021-05-05 13:08 | disposition home or self-care (01) ==
PROVIDERS: Emergency Medicine; Emergency Provider Student in an Organized Health Care Education/Training Program
DX: U07.1 COVID-19 (principal)
CPT/HCPCS: 81003; 81025; 87635; 99282; 99283; C9803

== ENCOUNTER 2021-05-18 18:50 | Emergency (ER) | payer OTHER, MEDICAID, SELFPAY ==
--- NOTE | 2021-05-18 18:59 | DI.RAD.S_ITS ---
PROCEDURE: XR CHEST 1V INDICATIONS: chest pain TECHNIQUE: One view of the chest was acquired. COMPARISON: [facility], , CHEST 2 VIEW, 08/10/2016, 13:58. FINDINGS: Surgical changes and devices: None. Lungs and pleura: Lungs are clear. No pleural effusions or pneumothorax. Mediastinum: Mediastinal contours appear normal. Heart size is normal. Bones and chest wall: No suspicious bony lesions. Overlying soft tissues appear unremarkable. IMPRESSION: No acute cardiopulmonary abnormality Dictated by: oYel Markham M.D. on 05/18/2021 at 20:04 Approved by: Yoel Markham M.D. on 05/18/2021 at 20:05
[2021-05-18 19:07] VITALS: BP 150/78; PULSE 82; RESP 18; TEMP 36.8; O2SAT 98; BMI 39.6
--- NOTE | 2021-05-18 19:21 | ED.CHESTPAIN ---
HPI - Chest Pain General Chief Complaint: Chest Pain Stated Complaint: post covid, new hemoptysis, chest pain, sob Time Seen by Provider: 05/18/21 19:15 Source: patient Mode of arrival: Ambulatory Limitations: no limitations History of Present Illness HPI narrative: 25-year-old female nonsmoker with noncontributory medical history presents from an outside walk-in clinic for evaluation of ongoing respiratory symptoms post COVID. Patient had been seen and evaluated at our facility on May 05 and was diagnosed with COVID. She had received a single [place] but no booster at that point. She was feeling fine and well after 5 day quarantine and return to work. Over the past few days she has had increasing harsh cough but no significant shortness of breath. Her cough brings on the sensation anterior chest pain and she feels like her lungs are burning. Last night she coughed some blood. Today she went to an outside facility was sent here for evaluation of possible PE. Related Data Previous Rx's Medication Instructions Recorded albuterol sulfate 90 mcg/actuation 1 inh INHALATION QID PRN #8.5 g 05/05/21 aerosol inhaler benzonatate 200 mg capsule 200 mg PO BID PRN #20 cap 05/18/21 promethazine 6.25 mg-codeine 10 5 ml PO Q4-6H PRN #473 ml 05/18/21 mg/5 mL syrup Allergies Allergy/AdvReac Type Severity Reaction Status Date / Time Penicillins [PENICILLINS] Allergy Unknown Verified 05/18/21 19:07 Review of Systems Review of Systems Narrative: GENERAL: Denies chills, fatigue, malaise, fever, sweats. HEENT: Denies sinus pain, ear pain, sore throat, difficulty swallowing, dizziness. RESPIRATORY: See HPI CARDIOVASCULAR: See HPI GASTROINTESTINAL: Denies nausea, vomiting, abdominal pain, diarrhea, constipation, melena. : Denies dysuria, frequency, incontinence, hematuria, urinary retention. MUSCULOSKELETAL: denies weakness, joint pain, or bony pain SKIN: Denies rash, skin lesions, or other NEUROLOGIC: Denies weakness, headache, numbness, change in speech, confusion, seizures, incoordination. PSYCHIATRIC: No concerning psychosocial issues. 12 point review of systems is negative except for those stated above Patient History Social History Smoking Status: Never smoker Smoking Status: Never smoker alcohol intake frequency: holidays/special occasions only Substance Use Type: marijuana Exam Narrative Exam Narrative: GENERAL: [25 year old patient appears stated age. Well-developed patient, in no obvious distress, resting comfortably HEAD: Atraumatic. Normocephalic. EYES: Pupils equal round and reactive. Extraocular motions intact. No scleral icterus. No injection or drainage. ENT: Nose without bleeding, purulent drainage. Throat without erythema, tonsillar hypertrophy or exudate. Airway patent. NECK: Trachea midline. Non tender CARDIOVASCULAR: Regular rate and rhythm without murmurs, gallops, or rubs. RESPIRATORY: Clear to auscultation. Breath sounds equal bilaterally. No wheezes, rales, or rhonchi. GASTROINTESTINAL: Abdomen soft, non-tender, nondistended. EXTREMITIES: No edema or joint tenderness. BACK: Nontender without deformity or crepitance. No flank tenderness. NEURO: AOx3. SKIN: No rash or erythema of visible areas Initial Vital Signs Initial Vital Signs: Vital Signs Temperature 98.2 F 05/18/21 19:07 Pulse Rate 82 05/18/21 19:07 Respiratory Rate 18 05/18/21 19:07 Blood Pressure 150/78 H 05/18/21 19:07 Pulse Oximetry 98 05/18/21 19:07 Scores PERC Score Age greater than or equal to 50 years: No Heart rate greater than or equal to 100 bpm: No Room Air O2 Sat less than 95%: No Unilateral leg swelling: No Recent trauma or surgery: No Hemoptysis: Yes Prior PE or DVT: No Hormone Use: No Total PERC Score: 1 Wells' Criteria for PE Clinical signs and symptoms of DVT: No PE is #1 Dx or equally likely: No Heart rate > 100: No Immobilization at least 3 days or surg in previous 4 weeks: No History of PE or DVT: No Hemoptysis: Yes Malignancy w/Treatment within 6 months or palliative: No Wells' PE Score total: 1 Course Orders Ordered: Discontinued Medications Albuterol (Albuterol Hfa Prepack) 1 box [facility] Stop: 05/18/21 20:30 Last Admin: 05/18/21 20:43 Dose: 1 box Documented by: TROY Vital Signs Vital signs: Vital Signs - 8 hr 05/18/21 19:07 Temperature 98.2 F Pulse Rate 82 Respiratory Rate 18 Blood Pressure 150/78 H Pulse Oximetry 98 MDM - Chest Pain Lab Data Attestation: I reviewed the patient's lab results. Result diagrams: 05/18/21 19:50 05/18/21 19:50 Labs: Lab Results 05/18/21 05/18/21 05/18/21 Range/Units 19:50 19:50 19:50 WBC 11.2 H (4.5-11.0) X10^3/uL RBC 5.03 (4.0-5.2) X10^6/uL Hgb 15.0 (12.0-16.0) g/dL Hct 43.6 (36-46) % MCV 86.7 (80-100) fL MCH 29.7 (26-34) PG MCHC 34.3 (30-36) % RDW 12.8 (11.6-14.8) % Plt Count 337 (150-400) X10^3/uL Neut % (Auto) 61.8 (50-75) % Lymph % (Auto) 29.6 (25-40) % [place] % (Auto) 7.2 (3-14) % Eos % (Auto) 0.9 L (2-4) % Baso % (Auto) 0.5 (0-2) % Neut # (Auto) 6900 (4689-6843) /uL Lymph # (Auto) 3300 (0649-6588) /uL [place] # (Auto) 800 (0-900) /uL Eos # (Auto) 100 (0-450) /uL Baso # (Auto) 100 (0-100) /uL D-Dimer < 200 (<230) ng/mL Sodium 138 (137-145) mmol/L Potassium 3.7 (3.4-5.1) mmol/L Chloride 106 (98-107) mmol/L Carbon Dioxide 25 (22-32) mmol/L BUN 13 (7-17) mg/dL Creatinine 0.65 (0.52-1.04) mg/dL Estimated GFR > 60.0 (>60) mL/min BUN/Creatinine Ratio 20.0 (6-22) Glucose 91 (70-100) mg/dL Calcium 9.5 (8.4-10.2) mg/dL Magnesium 2.1 (1.6-2.3) mg/dL Total Bilirubin 0.9 (0.2-1.3) mg/dL AST 32 (14-36) IU/L ALT 52 H (<35) IU/L Alkaline Phosphatase 96 (38-126) U/L Total Creatine Kinase 185 H (30-135) U/L CK-MB (CK-2) 0.49 (<2.37) ng/mL CK-MB (CK-2) Rel Index 0.3 L (1.5-5.0) % Troponin I < 0.012 (0.01-0.034) ng/mL NT-Pro-B Natriuret Pep (<125) pg/mL Total Protein 9.0 H (6.3-8.2) g/dL Albumin 5.0 (3.5-5.0) g/dL Globulin 4.0 (1.7-4.1) g/dL Albumin/Globulin Ratio 1.3 (1.0-2.8) Lipase 127 (23-300) U/L Serum , Qual 05/18/21 05/18/21 Range/Units 19:50 19:50 WBC (4.5-11.0) X10^3/uL RBC (4.0-5.2) X10^6/uL Hgb (12.0-16.0) g/dL Hct (36-46) % MCV (80-100) fL MCH (26-34) PG MCHC (30-36) % RDW (11.6-14.8) % Plt Count (150-400) X10^3/uL Neut % (Auto) (50-75) % Lymph % (Auto) (25-40) % [place] % (Auto) (3-14) % Eos % (Auto) (2-4) % Baso % (Auto) (0-2) % Neut # (Auto) (9709-0181) /uL Lymph # (Auto) (8608-5384) /uL [place] # (Auto) (0-900) /uL Eos # (Auto) (0-450) /uL Baso # (Auto) (0-100) /uL D-Dimer (<230) ng/mL Sodium (137-145) mmol/L Potassium (3.4-5.1) mmol/L Chloride (98-107) mmol/L Carbon Dioxide (22-32) mmol/L BUN (7-17) mg/dL Creatinine (0.52-1.04) mg/dL Estimated GFR (>60) mL/min BUN/Creatinine Ratio (6-22) Glucose (70-100) mg/dL Calcium (8.4-10.2) mg/dL Magnesium (1.6-2.3) mg/dL Total Bilirubin (0.2-1.3) mg/dL AST (14-36) IU/L ALT (<35) IU/L Alkaline Phosphatase (38-126) U/L Total Creatine Kinase (30-135) U/L CK-MB (CK-2) (<2.37) ng/mL CK-MB (CK-2) Rel Index (1.5-5.0) % Troponin I (0.01-0.034) ng/mL NT-Pro-B Natriuret Pep 29 (<125) pg/mL Total Protein (6.3-8.2) g/dL Albumin (3.5-5.0) g/dL Globulin (1.7-4.1) g/dL Albumin/Globulin Ratio (1.0-2.8) Lipase (23-300) U/L Serum , Qual Cancelled Point of Care Testing Test Results Negative Urine Dip Bedside Urine Glucose Negative Bedside Urine Bilirubin - Negative Bedside Urine Ketone +/- 5 Urine Specific [place] 1.025 Bedside Urine Occult Blood - Negative Bedside Urine pH 6.0 Bedside Urine Protein - Negative Bedside Urine Urobilinogen - Negative Bedside Urine Nitrite - Negative Bedside Urine Leukocytes - Negative Esterase Imaging Data Chest x-ray: Radiologist's Impression: Launch?[address] [address] XRay Report Signed Patient: Susan Winkler MR#: [id number] : 1995 Acct:[id number] Age/Sex: 25 / F Date of Service: 05/18/21 Loc: ED Accession Number: [id number] ?? Procedure: XR chest 1V Ordering Provider: Ray Walker D.O. PROCEDURE:? XR CHEST 1V ? INDICATIONS:? chest pain ? TECHNIQUE:? One view of the chest was acquired.? ? COMPARISON:? [facility], CR, CHEST 2 VIEW, 08/10/2016, 13:58. ? FINDINGS:? ? Surgical changes and devices:? None.? ? Lungs and pleura:? Lungs are clear.? No pleural effusions or pneumothorax.? ? Mediastinum:? Mediastinal contours appear normal.? Heart size is normal.? ? Bones and chest wall:? No suspicious bony lesions.? Overlying soft tissues appear unremarkable.? ? IMPRESSION:? No acute cardiopulmonary abnormality ? ? Dictated by: Yoel Markham M.D. on 05/18/2021 at 20:04 ? ? Approved by: Yoel Markham M.D. on 05/18/2021 at 20:05 ? ECG Data Interpretation: EKG is normal sinus rhythm rate 72 and free of any signs of ischemia or ectopy. No ST segmental elevation or depression. No T wave inversions MDM Narrative Medical decision making narrative: Patient with recent diagnosis of COVID presents at the request of an outside provider for evaluation of possible pulmonary embolism given increasing harsh cough which last night begin to include some pinkish tinge to the sputum. She has occasional chest pain with cough but this is not persistent. She denies any shortness of breath. Vital signs are reassuring and there is no evidence of tachycardia, tachypnea or hypoxemia. Wells criteria it would suggest she is low risk and she is unable to rule out using PERC criteria, D-dimer ordered and well below the cutoff, for this reason no CT angiogram is ordered. Most likely cause of hemoptysis is ongoing harsh cough. Extensive discussions with patient and significant other. They understand and agree with the plan. Return precautions given and questions answered to their apparent satisfaction Discharge Plan Departure Patient Disposition: Home Clinical Impression: Cough with hemoptysis Instructions: DI for Hemoptysis Activity Restrictions/Additional Instructions: *You have been diagnosed with [cough with bloody sputum, most likely due to harsh coughing post COVID. As we discussed, your labs, EKG and chest x-ray are very reassuring and there is no indication of a blood clot in your chest. *What to do: *Please continue to take your regular medications as directed. [x ] New medication prescriptions sent to your pharmacy: [[facility]] [ ] New medication written as a paper prescription [ ] No new medications given *Please follow up with your primary care provider in 2-3 days, call for an appointment. Let them know you were seen in the Emergency Department and that we ask that you be seen in follow up. We will electronically transmit a record of today's note if your PCP is in our system *If you do not have a primary care provider please contact the [facility] Resource line at [phone]. They will ask some questions about your medical history and help get you set up with a doctor in the community. *Return to Emergency Department if you should have any new, worsening or concerning symptoms, such as [fever greater than 101 F, shaking chills, worsening pain, persistent vomiting or other bothersome symptoms] You have been prescribed a short course of a cough syrup with opioids (codeine). These are potentially dangerous and addictive medications that should be used carefully. While on these medications you cannot drive or operate heavy machinery. Additionally, you cannot sign legal documents or perform any duties such as this. 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 Please understand that we cannot provide further refills of narcotics or controlled substances through the ED and your pain management will need to be through your Primary Care Provider Prescriptions: New benzonatate 200 mg capsule 200 mg PO BID PRN (Reason: cough) Qty: 20 0RF promethazine-codeine 6.25-10 mg/5 mL syrup 5 ml PO Q4-6H PRN (Reason: cough) Qty: 473 0RF No Action albuterol sulfate 90 mcg/actuation HFA aerosol inhaler 1 inh inhalation QID PRN (Reason: shortness of breath or wheezing) Qty: 8.5 0RF
[2021-05-18 20:01] LABS: Add Manual Diff / Slide Review NO; Basophils Absolute Auto 100 /uL (0-100); Basophils Percent Auto 0.5 % (0-2); Eosinophils Absolute Auto 100 /uL (0-450); Eosinophils Percent Auto 0.9 % (2-4); Hematocrit 43.6 % (36-46); Lymphocytes Absolute Auto 3300 /uL (1100-4500); Lymphocytes Percent Auto 29.6 % (25-40); Mean Corpuscular HGB Conc 34.3 % (30-36); Mean Corpuscular Hemoglobin 29.7 PG (26-34); Mean Corpuscular Volume 86.7 fL (80-100); Monocytes Absolute Auto 800 /uL (0-900); Monocytes Percent Auto 7.2 % (3-14); Neutrophils Absolute Auto 6900 /uL (1500-7000); Neutrophils Percent Auto 61.8 % (50-75); Platelet Count 337 X10^3/uL (150-400); Red Blood Cell Count 5.03 X10^6/uL (4.0-5.2); Red Cell Distribution Width 12.8 % (11.6-14.8); White Blood Cell Count 11.2 X10^3/uL (4.5-11.0)
[2021-05-18 20:17] LABS: Alanine Aminotransferase 52 IU/L (<35); Albumin Globulin Ratio 1.3 (1.0-2.8); Alkaline Phosphatase 96 U/L (38-126); Aspartate Aminotransferase 32 IU/L (14-36); Bilirubin Total 0.9 mg/dL (0.2-1.3); Blood Urea Nitrogen 13 mg/dL (7-17); Calcium 9.5 mg/dL (8.4-10.2); Carbon Dioxide 25 mmol/L (22-32); Chloride 106 mmol/L (98-107); Creatine Kinase 185 U/L (30-135); Estimated Glomerular Filt Rate > 60.0 mL/min (>60); Glucose 91 mg/dL (70-100); HEMOLYSIS 28 (0-50); Lipase 127 U/L (23-300); Magnesium 2.1 mg/dL (1.6-2.3); Potassium 3.7 mmol/L (3.4-5.1); Sodium 138 mmol/L (137-145)
[2021-05-18 20:19] LABS: D Dimer < 200 ng/mL (<230)
[2021-05-18 20:26] LABS: NT-proBNP (BNP-Adult 18+) 29 pg/mL (<125)
[2021-05-18 20:28] LABS: Troponin I < 0.012 ng/mL (0.01-0.034)
[2021-05-18 20:32] LABS: CKMB % Relative Index 0.3 % (1.5-5.0); Creatine Kinase MB 0.49 ng/mL (<2.37)
[2021-05-18 20:43] VITALS: O2SAT 97
[2021-05-18] MEDS: ALBUTEROL HFA PREPACK 1 BOX MISC (20:43)
[2021-05-18 21:10] VITALS: BP 111/56; PULSE 65; RESP 17; O2SAT 98
== END 2021-05-18 21:11 | disposition home or self-care (01) ==
PROVIDERS: Emergency Provider Emergency Medicine
DX: R04.2 Hemoptysis (principal); R07.9 Chest pain, unspecified
CPT/HCPCS: 36415; 71045; 80053; 81003; 81025; 82550; 82553; 83690; 83735; 83880; 84484; 85025; 85379; 93005; 99283; 99284

== ENCOUNTER → 2023-09-01 07:23 | Outpatient (CLI) | payer BC, SELFPAY ==
[2023-09-01 20:25] LABS: Glucose 98 mg/dL (70-100)
== END ==
PROVIDERS: PCP Family Medicine; Referring Provider Obstetrics & Gynecology; Visit Provider Obstetrics & Gynecology
DX: N97.0 Female infertility associated with anovulation (principal); E28.2 Polycystic ovarian syndrome
CPT/HCPCS: 36415; 82947; 83525

== ENCOUNTER 2023-12-18 16:39 | Emergency (ER) | payer OTHER, SELFPAY ==
[2023-12-18 16:46] VITALS: BP 132/80; PULSE 76; RESP 18; TEMP 36.1; O2SAT 99; BMI 47.0
[2023-12-18 20:10] VITALS: PULSE 76; O2SAT 99
[2023-12-18 20:30] VITALS: PULSE 65; O2SAT 98
--- NOTE | 2023-12-18 20:59 | ED.DENTAL ---
HPI - Dental/Oral General Chief complaint: Dental/Oral Stated complaint: dental pain, no appt until Time Seen by Provider: 12/18/23 20:09 History of Present Illness HPI Narrative: 28yoF presents for dental pain. Patient states her wisdom teeth began growing in. Has an appointment for consult for removal in 3 weeks, but could not be seen sooner. Pain radiating into ear and making it painful to swallow. Tylenol and ibuprofen not controlling pain. Related Data Home Medications Medication Instructions Recorded Confirmed bupropion HCl 150 mg 24 hr tablet, 150 mg PO QAM 08/26/23 09/26/23 extended release loratadine 10 mg tablet (Allergy 10 mg PO DAILY 08/26/23 09/26/23 Relief (loratadine)) Previous Rx's Medication Instructions Recorded albuterol sulfate 90 mcg/actuation 1 inh inhalation QID PRN shortness 05/05/21 aerosol inhaler of breath or wheezing #8.5 grams metformin 500 mg tablet 250 mg (1/2 x 500 mg) PO DAILY #90 09/10/23 tabs medroxyprogesterone 10 mg tablet 10 mg PO .COMPLEX #10 tabs 10/07/23 letrozole 2.5 mg tablet 5 mg (2 x 2.5 mg) PO .COMPLEX #10 12/16/23 tabs clindamycin HCl 150 mg capsule 450 mg (3 x 150 mg) PO TID 7 days 12/18/23 #63 caps tramadol 50 mg tablet 50 mg PO Q8H PRN pain #14 tabs 12/18/23 Allergies Allergy/AdvReac Type Severity Reaction Status Date / Time Penicillins [PENICILLINS] Allergy Unknown Verified 09/26/23 16:45 Patient History Medical History Abnormal Pap smear of cervix (~2021) Hypothyroidism Ovarian cyst (~2020) Surgical History Anesthesia History of cholecystectomy (~10/21/22) Family History Mother Diabetes mellitus History of heart disease Mental health problem Schizophrenia History of bipolar disorder Brother ADHD Sister ADHD Grandmother Hypertension Asthma COPD (chronic obstructive pulmonary disease) Social History Smoking Status: Never smoker Smoking Status: Never smoker alcohol intake frequency: holidays/special occasions only Substance Use Type: does not use Exam Initial Vital Signs Initial Vital Signs: Vital Signs Temperature 97.0 F L 12/18/23 16:46 Pulse Rate 76 12/18/23 16:46 Respiratory Rate 18 12/18/23 16:46 Blood Pressure 132/80 12/18/23 16:46 Pulse Oximetry 99 12/18/23 16:46 Oxygen Delivery Method Room Air 12/18/23 16:46 Const: Awake, alert, no acute distress, nontoxic appearing Mouth: impacted wisdom teeth, no trismus Skin: Warm, Dry, intact, no rashes Neuro: AO x3, CN II-XII grossly intact, moves all extremities Course Orders Ordered: Discontinued Medications Tramadol HCl (Tramadol 50 Mg Prepack) 1 bottle MISC DIRECTED ONE Stop: 12/18/23 21:00 Last Admin: 12/18/23 21:08 Dose: 1 bottle Documented By: SOCO Vital Signs Vital signs: Vital Signs - 8 hr 12/18/23 16:46 12/18/23 20:10 Temperature 97.0 F L Pulse Rate 76 76 Respiratory Rate 18 Blood Pressure 132/80 Pulse Oximetry 99 99 Oxygen Delivery Method Room Air MDM - Dental/Oral MDM Narrative Medical decision making narrative: Well-appearing patient with persistent dental pain. Patient unfortunately is not able to obtain an earlier dental appointment then 01/11. With patient's report of pain causing difficulty swallowing plan to treat for possible infection. Reports allergy to penicillins. Clindamycin and pain medication sent to pharmacy of choice. Discharge Plan Departure Patient Disposition: Home Clinical Impression: Toothache Instructions: DI for Dental Pain Activity Restrictions/Additional Instructions: Continue to take Tylenol and ibuprofen for pain. If the pain is still unbearable then you may take the medications prescribed. Prescriptions: New clindamycin HCl 150 mg capsule 450 mg PO TID 7 Days Qty: 63 0RF tramadol 50 mg tablet 50 mg PO Q8H PRN (Reason: pain) Qty: 14 0RF No Action metformin 500 mg tablet 250 mg PO DAILY Qty: 90 3RF Rx Instructions: Start with 250mg (1/2 tab) once a day for 2 wks, then twice a day for 2 wks, then 500mg in am and 250mg in pm for 2 wks and then 500mg BID medroxyprogesterone 10 mg tablet 10 mg PO .COMPLEX Qty: 10 3RF Rx Instructions: 10 mg orally x10 days or until bleeding starts; letrozole 2.5 mg tablet 5 mg PO .COMPLEX Qty: 10 0RF Rx Instructions: 5 mg orally take 2 tablets PO daily on day 3-7 of cycle; bupropion HCl 150 mg tablet extended release 24 hr 150 mg PO QAM loratadine [Allergy Relief (loratadine)] 10 mg tablet 10 mg PO DAILY albuterol sulfate 90 mcg/actuation HFA aerosol inhaler 1 inh inhalation QID PRN (Reason: shortness of breath or wheezing) Qty: 8.5 0RF Referrals: Bhakti Amezcua MD [Primary Care Provider] - Stand Alone Forms: Patient Portal/API
[2023-12-18 21:00] VITALS: PULSE 66; RESP 18; O2SAT 97
[2023-12-18] MEDS: TRAMADOL 50 MG PREPACK 1 BOTTLE MISC (21:08)
[2023-12-18 21:13] VITALS: BP 124/74; PULSE 63; RESP 14; O2SAT 98
== END 2023-12-18 21:14 | disposition home or self-care (01) ==
PROVIDERS: Emergency Provider Emergency Medicine; PCP Family Medicine
DX: K08.89 Other specified disorders of teeth and supporting structures (principal); Z79.899 Other long term (current) drug therapy
CPT/HCPCS: 99281; 99283